=== PATIENT | male | born 1960 | race Caucasian/White ===

== ENCOUNTER 2024-04-24 08:59 | Outpatient (AMB) | payer OTHER, SELFPAY ==
[2024-04-24 09:03] VITALS: BP 122/68; PULSE 72; BMI 24.7
--- NOTE | 2024-04-24 09:03 | MHC.OFFVIS ---
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 to arterial health Allergies Seasonal Allergies Allergy (Severe, Verified 04/24/24 09:18) sneezing Medication List - Last Reconciled 04/24/24 by Elier Jones MD levothyroxine (Levoxyl) 100 mcg PO DAILY omeprazole 10 mg PO DAILY rimegepant (Nurtec ODT) 75 mg PO Q OTHER DAY HPI Comments Details: Thank you for referring myocardial cardiology consultation today for cardiac evaluation. He is a 63-year-old male with prior history of Graves disease status post radioactive iodine treatment and currently on replacement therapy with Levoxyl, migraine headaches. Patient says that more recently he has been hearing his carotid pulse when he is in a very silent conditions. However he also says that over the last year or so he has been noticing increasing symptoms of shortness of breath when he is rushing to do something at his work or when he is very stressed out. He was no associated chest pain. He is worried about these symptoms. Family history of coronary artery disease. No recent lipid panel is noted. Patient has no history of hypertension or diabetes. Otherwise functional remained stable. Recently had what appears to be cholestatic jaundice although this is unclear. [facility] Medical History Eczema Family History Father Heart attack Mother Cancer Social History Alcohol intake: never Patient Tobacco Use Status: Never used Tobacco Review of Systems Const Denies weakness ENT Denies dizziness Card Denies chest pain, Denies chest pain with activity, Denies syncope, Denies rapid heart rate, Denies pedal edema, Denies edema, Denies leg edema, Denies lightheadedness, Denies palpitations, Denies dyspnea, Denies dyspnea on exertion and Denies orthopnea Resp Denies cough, Denies dyspnea and Denies dyspnea on exertion GI Denies hematochezia and Denies change in stool character Musc Denies abnormal gait, Denies muscle cramps, Denies muscle weakness, Denies numbness, Denies radiating pain into limb and Denies tingling Neuro Denies abnormal gait, Denies dizziness, Denies syncope, Denies numbness, Denies tingling and Denies weakness Endo Denies palpitations Physical Exam Vital Signs: Last Vital Signs Pulse 72 04/24/24 09:03 BP 122/68 04/24/24 09:03 BMI result Body Mass Index 24.7 Const General: cooperative, comfortable, no acute distress, alert, awake, Physically active and anxious Nutritional Appearance: thin Orientation/consciousness: patient oriented x3 Limitations: no limitations HEENT Head: Yes normocephalic and Yes atraumatic Neck Neck: Yes trachea midline, Yes supple and Yes no JVD Carotids: no bruits Resp Effort & Inspection: normal respiratory effort Auscultation: clear to auscultation bilaterally Cardio Jugular venous distension: no JVD Palpation: normal PMI Rate: regular rate Rhythm: regular rhythm Heart sounds: S1 normal heart sound present, S2 normal heart sound present, no click, no gallops, no murmurs and no rubs GI Auscultation: normal bowel sounds Skin General skin exam: no rashes or lesions noted Neuro General: patient oriented x3 and no focal motor deficits Extrem General: Yes no clubbing, cyanosis or edema Psych Appearance: grossly normal Affect: Anxious affect present Office Procedures EKG Details: EKG shows normal sinus rhythm with T-wave inversion inferior leads which could represent ischemia with nonspecific inferolateral ST changes 10374-Nhhukyjgegqkijkui, Complete Assessment & Plan Assessment & Plan (1) SOB (shortness of breath) on exertion: Code(s): R06.02 - Shortness of breath Category: Medical Plan: Exertional shortness of breath in this middle-aged man with risk factors of family history. Unknown lipid status. Patient was EKGs baseline abnormal. Myocardial ischemia needs to be ruled out. Will suggest a exercise myocardial perfusion imaging given baseline abnormal EKG. Also suggest an echocardiogram to evaluate for LV systolic and diastolic function as well as to evaluate for pulmonary hypertension given his symptoms of exertional shortness of breath. Further treatment and testing based on the findings. He is having symptoms of unusual carotid sounds in silent involvement will check for carotid artery stenosis. Although likelihood of significant carotid stenosis is low. If these tests are within normal limits we did recommend to pursue coronary calcium score and lipid panel to further assess and risk stratify as needed. Will follow up in the clinic after above-mentioned test. Thank you for allowing me to partake in his care Orders: Orders CA stress test Today R06.02 - Shortness of breath NM cardiolite stress test 2 Weeks R06.02 - Shortness of breath CA echo transthoracic complete Today R06.02 - Shortness of breath US carotid duplex BI Today G45.1 - Carotid artery syndrome (hemispheric), R06.02 - Shortness of breath Coding Level of Care Code New Pt Level 4 (83788) Complex EM visit Add On G2211 Diagnoses SOB (shortness of breath) on exertion R06.02 CPT Codes EKG - CPT: 31379-Ripbdljcivgghmugh, Complete ([id number])
== END 2024-04-24 09:47 | disposition home or self-care (01) ==
PROVIDERS: PCP Internal Medicine; Visit Provider Internal Medicine Cardiovascular Disease
DX: R06.02 Shortness of breath (principal)
CPT/HCPCS: 93010; 99204

== ENCOUNTER → 2024-04-24 08:59 | Outpatient (BNVA) | payer OTHER, SELFPAY | PROVIDERS: PCP Internal Medicine; Visit Provider Internal Medicine Cardiovascular Disease | DX: R06.02 Shortness of breath (principal) | CPT/HCPCS: 93005 ==

== ENCOUNTER → 2024-04-27 13:09 | Outpatient (REF) | payer OTHER, SELFPAY ==
--- NOTE | 2024-04-27 13:13 | CA_ITS ---
Transthoracic Echocardiogram Patient (Last, First, Middle): Duong Watson, Gender: Male Date of : 1960 Age: 63 Procedure Date: 04/27/2024 Procedure Type: Transthoracic Echocardiogram Location: OP Height: 177.8 cm Weight: 71.67 kg BSA: 1.89 m2 Heart Rate: bpm BP: 132 / 82 mmHg Clinical Material Handler: ALEXANDRO Referring MD: Elier Jones MD Symptoms: R06.02 - Shortness of breath Study Quality: Adequate ECG Rhythm: Sinus Conclusions: - The left ventricular systolic function is normal. The visually estimated ejection fraction is between 55-60%. - The mitral valve appears myxomatous. There is trace mitral valve regurgitation. Findings Left Ventricle Normal left ventricular cavity size. There is normal left ventricular wall thickness. The left ventricular systolic function is normal. The visually estimated ejection fraction is between 55-60%. There is no evidence of regional wall motion abnormalities. Diastolic function is normal for age. E/E prime ratio is <8, consistent with normal filling pressures. LV peak GLS -19.4%. Right Ventricle Mildly increased right ventricular cavity size. There is normal right ventricular systolic function. Atria Both atria are normal in size. Aortic Valve There is a normal trileaflet aortic valve. There is no aortic valve stenosis. There is no aortic valve regurgitation. Mitral Valve The mitral valve appears myxomatous. There is trace mitral valve regurgitation. There is no mitral valve stenosis. Pulmonic Valve The pulmonic valve is likely normal. Tricuspid Valve There is trace tricuspid valve regurgitation. There is no evidence of pulmonary hypertension. Great Vessels The asc aorta is normal in size. Venous The inferior vena cava is mildly dilated and collapses greater than 50% with inspiration. Pericardium/Pleural There is no evidence of pericardial effusion. Prior Study Comparison No prior study available for comparison. Measurements 2D Linear Measurements IVSd: 0.82 0.6-0.9/0.6-1.0 cm LVIDd: 4.97 3.9-5.3/4.2-5.9 cm LVIDd Index: 2.63 2.4-3.2/2.2-3.1 cm/m2 LVIDs: 3.28 2.0-3.6 cm LVPWd: 0.85 0.7-1.1 cm LA Diam: 3.60 2.7-3.8/3.0-4.0 cm LAIDs Index: 1.90 1.5-2.3 cm/m2 LV Mass: 176.24 67-162/88-224 g LV Mass Index: 93.25 43-95/49-115 g/m2 LVOT Diam: 2.40 3.0+(-)1.3 cm 2D Systolic Function EF 4C: 65.90 >55% EF 2C: 55.60 >55% EF BiP: 61.20 >55% Mitral Valve MV Pk E: 0.66 MV PK A: 0.45 MV Decel Time: 297.00 E/A: 1.50 E'Lateral: 11.20 E'Medial: 8.27 E/E' Med: 8.00 E/E' Lat: 5.90 PHT: 87.00 MVA PHT: 2.53 Decel Portage: 2.22 Aortic Valve AoV Pk Yong: 1.31 AoV Mn Yong: 0.99 AoV VTI: 0.30 AoV Pk Grad: 7.00 Aov Mn Grad: 4.00 CHRISTIANO Cont.VTI: 3.60 LVOT LVOT Pk Yong: 1.07 LVOT Mn Yong: 0.68 LVOT VTI: 0.24 LVOT Pk Grad: 5.00 LVOT Mn Grad: 2.00 LVOT Diam: 2.40 LVOT Area: 4.52 Diastolic Function MV Pk E: 0.66 MV Pk A: 0.45 E/A: 1.50 E'Medial: 8.27 E/E' Med: 8.00 E' Laterial: 11.20 E/E' Lat: 5.90 Right Ventricle TAPSE (mm): 32.60 TVS' Yong: 14.30 Tricuspid Valve TR Pk Yong: 2.05 TR Pk Grad: 17.00 RA Press: 8.00 RVSP: 25.00 Great Vessels Aorta Sinus of Valsalva: 4.42 2.0-3.[address] Ridge: 3.18 1.7-3.4 cm Ao Asc: 3.50 2.1-3.4 cm Updated in Other Vendor System with Status of Final Yusuf Whipple MD electronically signed on 04/29/2024 12:49:52 PM with status of Final
--- OUTSIDE RECORDS SUMMARY | 2024-04-27 14:35 | XMS_ITS | Continuity of Care Document ---
Author Organization [facility] [address] [place] [address] Phone [phone] Care Team Providers Care Roll Winder Name Role Phone Lauren Sandoval MD Care Team Information Receive r [phone] Alex Chaparro M.D. Care Team Information Link Trainer Teacher [phone] Problems Active Problems Provider Date Hyperlipidemia ROD Townsend Onset: 2023 Polyp of colon ROD Townsend Onset: 2023 Erectile dysfunction ROD Townsend Onset: 0 08/03/2023 Insomnia ROD Townsend Onset: 2023 Gastroesophageal reflux disease ROD Townsend Onset: 08/03/2023 Anemia ROD Townsend Onset: 2023 Social History Type Date Description Comments Sex Unknown Tobacco Use Start: Unknown Never Smoked Cigarettes ETOH Use Never used alcohol Allergies and adverse reactions Active Allergies Criticality Reaction Severity Comments Date Lactose Intolerance Unable to assess criticality 08/03/2023 Palm Kernel Oil Unable to assess criticality 08/03/2023 Inactive Allergies NKDA Unable to assess criticality 08/03/2023 Medications Active Medications SIG Qnty Indications Order ing Provider Date [id number] Tablets Take 1 tab by mouth every day 30tabs Antonio Hendrix M.D. 08/10/2023 [id number] Tablets Dispers Please See Attached For Detailed Directions Duong Pearson M.D. Tyrvaya0.03mg/Act Solution Instill one spray into both nostrils twice daily as Directed. Harry De La Vega MD Restasis0.05% Emulsion Apply 1 Drop In Both Affected Eyes Twice A Day Harry De La Vega MD [id number] Capsules DR Take 1 Capsule By Mouth Every Day Before A Meal Alex Chaparro M.D. Vital Signs Date Vital Result Comment 08/03/2023 1:54pm BP Systolic 118 mmHg BP Diastolic 70 mmHg Heart Rate 90 /min Height 70 inches 5'10 Weight 150.00 lb BMI (Body Mass Index) 21.5 kg/m2 Results Test Acquired Date Facility Test Result H/L Range Note CBC With Differential/Pl atelet 08/03/2023 [facility] WBC 4.8 x10E3/uL 3.4-10.8 RBC 3.83 x10E6/uL Low 4.14-5.80 Hemoglobin 12.2 g/dL Low 13.0-17.7 Hematocrit 34.9 % Low 37.5-51.0 MCV 91 fL 79-97 MCH 31.9 pg 26.6-33.0 MCHC 35.0 g/dL 31.5-35.7 RDW 12.5 % 11.6-15.4 Platelets 216 x10E3/uL 150-450 Neutrophils 64 % Not Estab. Lymphs 28 % Not Estab. Monocytes 7 % Not Estab. Eos 1 % Not Estab. Basos 0 % Not Estab. Immature Cells TNP Neutrophils (Absolute) 3.1 x10E3/uL 1.4-7.0 Lymphs (Absolute) 1.3 x10E3/uL 0.7-3.1 Monocytes(Absolute) 0.3 x10E3/uL 0.1-0.9 Eos (Absolute) 0.1 x10E3/uL 0.0-0.4 Baso (Absolute) 0.0 x10E3/uL 0.0-0.2 Immature Granulocytes 0 % Not Estab. Immature Grans (Abs) 0.0 x10E3/uL 0.0-0.1 NRBC TNP Hematology Comments: TNP Comp. Metabolic Panel (14) 08/03/2023 [facility] Glucose 106 mg/dL High 70-99 BUN 21 mg/dL 8-27 Creatinine 0.55 mg/dL Low 0.76-1.27 eGFR 113 mL/min/1.7 3 >59 BUN/Creatinine Ratio 38 High 10- 24 Sodium 140 mmol/L 134-144 Potassium 4.2 mmol/L 3.5-5.2 Chloride 105 mmol/L 96-106 Carbon Dioxide, Total 20 mmol/L 20-29 Calcium 9.3 mg/dL 8.6-10.2 Protein, Total 6.4 g/dL 6.0-8.5 Albumin 4.2 g/dL 3.8-4.9 Globulin, Total 2.2 g/dL 1.5-4.5 A/G Ratio 1.9 1.2-2.2 Bilirubin, Total 0.2 mg/dL 0.0-1 .2 Alkaline Phosphatase 86 IU/L 44- 121 Ast (Sgot) 22 IU/L 0-40 Alt (SGPT) 26 IU/L 0-44 TSH Rfx on Abnormal to Free T4 08/03/2023 [facility] TSH RFX On Abnormal To Free T4 <0.005 uIU/mL Low 0.450-4.5 00 T4,Free (Direct) 2.65 ng/dL High 0.82 -1.77 Laboratory test finding 08/03/2023 [facility] Thyrotropin Receptor Ab, Serum 4.56 IU/L High 0.00-1.75 T4 Free & T3 Free 08/03/2023 [facility] Thyroxine (T-4), Serum 13.4 g /dL High 1 Free T-3 8.0 pg/mL High 2 Triiodothyronin e (T-3), Serum 201 ng/dL High 3 Free Thyroxine 2.64 ng/dL High 4 1 Reference Range: Adults: 4.2 - 13.0 2 Reference Range: >=20y: 2.0 - 4.4 3 Reference Range: Adults: 55 - 170 4 Reference Range: >=20y: 0.82 - 1.77 Medical Devices Description No Information Available Encounters Type Date Location Provider Dx Diagnosis Office Visit 08/03/2023 1:30p Main Office ROD Townsend E05.90 Thyrotoxicosi s, unsp without thyrotoxic crisis or storm Assessments Date Code Description Provider 08/03/2023 E05.90 Thyrotoxicosis, unspecified without thyrotoxic crisis or storm ROD Townsend Plan of Treatment 08/03/2023 - ROD Townsend* E05.90 Thyrotoxicosis, unspecified without thyrotoxic crisis or storm* New Labs:* Comp. Metabolic Panel (14), Ordered: 08/03/23 * CBC With Differential/Platelet, Ordered: 08/03/23 * TSH RFX On Abnormal To Free T4, Ordered: 08/03/23 * T4 Free & T3 Free, Ordered: 08/03/23 * Thyrotropin Receptor AB, Serum, Ordered: 08/03/23 Functional Status Description No Information Available Mental Status Description No Information Available Referrals Description No Information Available
== END ==
LOC: HO.CARD 13:09
PROVIDERS: Visit Provider Internal Medicine Cardiovascular Disease
DX: R06.02 Shortness of breath (principal)
CPT/HCPCS: 93306; 93356

== ENCOUNTER → 2024-04-27 13:13 | Outpatient (BNV) | payer OTHER, SELFPAY | PROVIDERS: Visit Provider Internal Medicine | DX: I34.1 Nonrheumatic mitral (valve) prolapse (principal); I34.0 Nonrheumatic mitral (valve) insufficiency | CPT/HCPCS: 93306; 93356 ==

== ENCOUNTER 2024-05-02 13:07 | Outpatient (REF) | payer OTHER, SELFPAY ==
--- NOTE | ~2024-05-02 | US_ITS ---
EXAMINATION: US EXTRACRANIAL CAROTID DUPLEX, BILATERAL CLINICAL INFORMATION: Shortness of breath COMPARISON: None available. TECHNIQUE: Real-time ultrasound and Doppler techniques (integrating B-mode 2-D vascular images, Doppler spectral analysis and color-flow Doppler imaging) were utilized to interrogate the extracranial carotid arteries, the vertebral arteries and proximal subclavian arteries bilaterally. The degree of stenosis is determined by criteria similar to NASCET. FINDINGS: Right Side: 1. There is hard atherosclerotic plaque seen in the bifurcation/proximal ICA region. 2. The common carotid artery PSV proximally is 100 cm/s and distally 60 cm/s. 3. The proximal internal carotid artery velocities are 60 cm/s systolic and 20 cm/s diastolic. 4. The proximal external carotid artery PSV is 90 cm/s. 5. The vertebral artery shows antegrade flow. 6. The subclavian artery waveforms are normal. Left Side: 1. There is hard atherosclerotic plaque seen in the bifurcation/proximal ICA region. 2. The common carotid artery PSV proximally is 101 cm/s and distally 59 cm/s. 3. The proximal internal carotid artery velocities are 51 cm/s systolic and 20 cm/s diastolic. 4. The proximal external carotid artery PSV is 72 cm/s. 5. The vertebral artery shows antegrade flow. 6. The subclavian artery waveforms are normal. US/US carotid duplex BI IMPRESSION: 1. RIGHT: No hemodynamically significant stenosis. 0-49% 2. LEFT: No hemodynamically significant stenosis. 0-49% 3. No previous carotid ultrasound available at this institution. Electronically signed by: Ranjan Burris MD 05/03/2024 09:41 AM EST
--- OUTSIDE RECORDS SUMMARY | 2024-05-02 15:20 | XMS_ITS | Continuity of Care Document ---
Author Organization [facility] [address] [place] [address] Phone [phone] Care Team Providers Care Triage Licensed Practical Nurse Name Role Phone Lauren Sandoval MD Care Team Information Receive r [phone] Alex Chaparro M.D. Care Team Information Shuttler Car [phone] Problems Active Problems Provider Date Hyperlipidemia ROD [...] SIG Qnty Indications Order ing Provider Date Dhlrahlszyx87ie Tablets Take 1 tab by mouth every day 30tabs Antonio Hendrix M.D. 08/10/2023 [id number] Tablets Dispers Please See Attached For Detailed Directions Duong Pearson M.D. Tyrvaya0.03mg/Act Solution Instill one spray into both nostrils twice daily as Directed. Harry De La Vega MD Restasis0.05% Emulsion Apply 1 Drop In Both Affected Eyes Twice A Day Harry De La Vega MD [id number] Capsules DR Take 1 Capsule By Mouth [...]
== END 2024-05-02 13:08 | disposition home or self-care (01) ==
LOC: HO.US 13:07
PROVIDERS: PCP Internal Medicine; Visit Provider Internal Medicine Cardiovascular Disease
DX: R06.02 Shortness of breath (principal); G45.1 Carotid artery syndrome (hemispheric)
CPT/HCPCS: 93880

== ENCOUNTER → 2024-05-02 13:09 | Outpatient (BNV) | payer OTHER, SELFPAY | PROVIDERS: PCP Internal Medicine; Visit Provider Radiology Diagnostic Radiology | DX: I70.90 Unspecified atherosclerosis (principal) | CPT/HCPCS: 93880 ==

== ENCOUNTER 2024-05-23 09:17 | Outpatient (AMB) | payer OTHER, SELFPAY ==
[2024-05-23 09:21] VITALS: BP 124/72; PULSE 76; BMI 24.7
--- NOTE | 2024-05-23 09:21 | MHC.OFFVIS ---
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 He did undergo an echocardiogram and carotid study. A nuclear stress test has been ordered but not completed as of yet. Today he reports that he still has some shortness of breath with exertion and if he is moving quickly. He is concerned about this as it is newer for him. He has not had any chest discomfort at rest or with activity. He does have some discomfort in his left arm that is random. In the mornings he has swelling in his left hand and. He does describe having cervical disc issues and nerve compression which can contribute to his left arm symptoms. No heart palpitations, lightheadedness, presyncope, syncope. At times he can hear his heart beating in his ear if the room is very quiet. 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 [facility] Medical History Eczema Family History Father Heart attack Mother Cancer Social History Alcohol intake: never Patient Tobacco Use Status: Never used Tobacco Review of Systems Const Details: chronic issues with headaches - which have been worse recently All systems reviewed & are unremarkable except as noted in HPI and below ENT Details: can hear pulsation in ears if room very quiet Denies dizziness Card Details: left arm discomfort and swelling in left hand at times Denies chest pain, Denies chest pain at rest, Denies chest pain with activity, Denies rapid heart rate, Denies pedal edema, Denies edema, Denies leg edema, Denies lightheadedness, Denies palpitations, Denies dyspnea, Reports dyspnea on exertion (at times causing concern) and Denies orthopnea Resp Denies cough, Denies dyspnea and Reports dyspnea on exertion (at times causing concern) GI Denies hematochezia and Denies change in stool character Musc Denies abnormal gait, Denies limited range of motion, Denies muscle cramps, Denies muscle weakness, Denies numbness, Denies radiating pain into limb, Denies stiffness and Denies tingling Neuro Denies abnormal gait, Denies dizziness, Denies numbness and Denies tingling Endo Denies palpitations Physical Exam Vital Signs: Last Vital Signs Pulse 76 05/23/24 09:21 BP 124/72 05/23/24 09:21 BMI result Body Mass Index 24.7 Const General: cooperative, healthy appearing, comfortable and no acute distress Orientation/consciousness: patient oriented x3 Neck Neck: Yes normal visual inspection and Yes no JVD Resp Effort & Inspection: normal respiratory effort Auscultation: clear to auscultation bilaterally, no crackles, no rales, no rhonchi and no wheezes Cardio Jugular venous distension: no JVD Rate: regular rate Rhythm: regular rhythm Heart sounds: S1 normal heart sound present, S2 normal heart sound present, no murmurs and no rubs Neuro General: patient oriented x3 Extrem General: Yes normal to inspection, No no pedal edema and No calf tenderness Psych Appearance: grossly normal Mental Status: mental status grossly normal Speech and movement: Normal speech and movement present Assessment & Plan Assessment & Plan (1) SOB (shortness of breath) on exertion: Code(s): R06.02 - Shortness of breath Category: Medical Plan: Newer symptom of shortness of breath with exertional activities. Patient has no cardiac history. He has a low cardiac risk profile. EKG done last visit showed sinus rhythm with ST and T-wave abnormality in leads 3, AVF and V6. He had an echocardiogram on 04/24/2024 showing EF 55-60%, no regional wall motion abnormalities, myxomatous mitral valve. For a pulsation in his ears he did undergo a carotid study on 05/02/2024 which showed right and left ICA with no hemodynamically significant stenosis, 0-49%. Test results reviewed with him. A nuclear stress test had been ordered however not completed as of yet. Is currently scheduled for July. I will try to see if we can get this done sooner. Signs and symptoms of true angina reviewed with him. Cardiology follow-up in a few months, sooner if needed. Emergency care if ever warranted for symptoms. (2) Left arm pain: Code(s): M79.602 - Pain in left arm Category: Medical Plan: Report of left arm discomfort, intermittent. Also some swelling in his left hand and tightness with his grasped. He does have cervical spine issues and has had surgery in the past. Symptom is most likely related to this. He does have a nuclear stress test pending which will help to rule out cardiac cause. Plan Time spent on chart review, documentation, interview and assessment Coding Level of Care Code Est Pt Level 3 (75839) Complex EM visit Add On G2211 Diagnoses SOB (shortness of breath) on exertion R06.02 Left arm pain M79.602 Time Spent (min) 24
== END 2024-05-23 09:52 | disposition home or self-care (01) ==
PROVIDERS: PCP Internal Medicine; Visit Provider Nurse Practitioner Family
DX: R06.02 Shortness of breath (principal); M79.602 Pain in left arm
CPT/HCPCS: 99213

== ENCOUNTER → 2024-08-10 08:17 | Outpatient (REF) | payer OTHER, SELFPAY ==
--- NOTE | 2024-08-10 08:20 | CA_ITS ---
Acquisition Time: 2024-08-10 08:25:20 Total Exercise Time: 00:07:35 Test Indications: ABN EKG, SOB Medications: SEE H&P Protocol: LURDES Max HR: 142 BPM 89% of Pred: 159 BPM Max BP: 142/70 mmHG Max Work Load: 9.4 METS Exercise stress test with exercise 7 mins 35 secs of Lurdes Protocol, achieving 88% MPHR, with reports of 5/10 left sided chest pressure and moderate SOB, with isolated PACs, with normotensive response to exercise. With sagging ST not meeting criteria for ischemia, nonspecific ST- T waves at baseline. In recovery, chest pain slowly improving and brathing returned to baseline. Nuclear images pending. Test reviewed [facility] Dr. Whipple. Referred By: Elier Jones Electronically Signed By: Lakhwinder Ledesma
--- OUTSIDE RECORDS SUMMARY | 2024-08-10 08:32 | XMS_ITS | Continuity of Care Document ---
Author Organization [facility] [address] [place] [address] Phone [phone] Care Team Providers Care Continuity Person Name Role Phone Lauren Sandoval MD Care Team Information Receive r [phone] Alex Chaparro M.D. Care Team Information Hot Car Charger [phone] Problems Active Problems Provider Date Hyperlipidemia ROD [...] SIG Qnty Indications Order ing Provider Date [id number] Tablets Take 1 tab by mouth every day 30tabs Antonio Hendrix M.D. 08/10/2023 Aarniz94ie Tablets Dispers Please See Attached For Detailed Directions Duong Pearson M.D. Tyrvaya0.03mg/Act Solution Instill one spray into both nostrils twice daily as Directed. Harry De La Vega MD Restasis0.05% Emulsion Apply 1 Drop In Both Affected Eyes Twice A Day Harry De La Vega MD [id number] Capsules DR Take 1 Capsule By Mouth [...] T4,Free (Direct) 2.65 ng/dL High 0.82 -1.77 Thyrotropin Receptor Ab, Serum 08/03/2023 [facility] Thyrotropin Receptor Ab, Serum 4.56 [...]
== END ==
LOC: HO.CARD 08:17
PROVIDERS: PCP Internal Medicine; Visit Provider Internal Medicine Cardiovascular Disease
DX: R06.02 Shortness of breath (principal)
CPT/HCPCS: 78452; 93017; A9500

== ENCOUNTER → 2024-08-10 08:20 | Outpatient (BNV) | payer OTHER, SELFPAY | PROVIDERS: PCP Internal Medicine | DX: R06.02 Shortness of breath (principal); I49.1 Atrial premature depolarization | CPT/HCPCS: 78452; 93016; 93018 ==

== ENCOUNTER 2024-08-24 08:30 | Outpatient (AMB) | payer OTHER, SELFPAY ==
[2024-08-24 08:32] VITALS: BP 124/82; PULSE 77; BMI 25.3
--- NOTE | 2024-08-24 08:32 | A.OFFVIS_ITS ---
Vital Signs 08/24/24 08:32 Height 5 ft 10 in Weight 176 lb 5.917 oz BMI 25.3 BP 124/82 Blood Pressure Location Lt brachial Position Sitting Pulse 77 Pulse Source Pulse Oximeter Intake Visit Reasons: follow-up after stress test University Librarian Required: No Allergies Seasonal Allergies Allergy (Severe, Verified 08/24/24 08:34) sneezing Medication List - Last Reconciled 08/24/24 by Cammy Echols NP-C levothyroxine (Levoxyl) 100 mcg PO DAILY omeprazole 40 mg PO DAILY rimegepant (Nurtec ODT) 75 mg PO Q OTHER DAY HPI HPI follow-up after stress test: Details: Duong is a 63-year-old male with no cardiac history who is reporting exertional shortness of breath and chest discomfort. He recently underwent a nuclear stress test and now presents for follow-up. Today he reports that he still has some shortness of breath with exertion and if he is moving quickly. He states this symptom is newer for him since last summer. He has notice chest discomfort and some lightheadedness as well with exertion. No heart palpitations, presyncope, syncope, falls. No shortness of breath at rest, PND, orthopnea or edema. In the mornings he has swelling in his left hand and discomfort in his left arm which causes him some concern. He does describe having cervical disc issues and nerve compression which can contribute to his left arm symptoms. 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 [facility] Medical History Eczema Family History Father Heart attack Mother Cancer Social History Alcohol intake: never Patient Tobacco Use Status: Never used Tobacco Review of Systems Const All systems reviewed & are unremarkable except as noted in HPI and below ENT Denies dizziness Card Details: chest heaviness, lightheaded at times Denies chest pain, Denies chest pain at rest, Denies chest pain with activity, Denies rapid heart rate, Denies pedal edema, Denies edema, Denies leg edema, Reports lightheadedness, Denies palpitations, Reports dyspnea, Reports dyspnea on exertion and Denies orthopnea Resp Denies cough, Reports dyspnea and Reports dyspnea on exertion GI Denies hematochezia and Denies change in stool character Musc Denies abnormal gait, Reports limited range of motion, Reports muscle cramps, Denies muscle weakness, Denies numbness, Denies radiating pain into limb, Denies stiffness and Denies tingling Neuro Denies abnormal gait, Denies dizziness, Denies numbness and Denies tingling Endo Denies palpitations Physical Exam Vital Signs: Last Vital Signs Pulse 77 08/24/24 08:32 BP 124/82 08/24/24 08:32 BMI result Body Mass Index 25.3 Const General: cooperative, healthy appearing, comfortable and no acute distress Orientation/consciousness: patient oriented x3 Neck Neck: Yes normal visual inspection Resp Effort & Inspection: normal respiratory effort Auscultation: clear to auscultation bilaterally, no crackles, no rales, no rhonchi and no wheezes Cardio Rate: regular rate Rhythm: regular rhythm Heart sounds: S1 normal heart sound present, S2 normal heart sound present, no murmurs and no rubs Neuro General: patient oriented x3 Extrem General: Yes normal to inspection, No no pedal edema and No calf tenderness Psych Appearance: grossly normal Mental Status: mental status grossly normal Speech and movement: Normal speech and movement present Assessment & Plan Assessment & Plan (1) SOB (shortness of breath) on exertion: Code(s): R06.02 - Shortness of breath Category: Medical Plan: In the last year, new shortness of breath with exertional activities also with periodic chest discomfort and lightheadedness with exertion. Patient has no cardiac historyand low cardiac risk profile. Prior EKG shows sinus rhythm with ST and T-wave abnormality in leads 3, AVF and V6. Echocardiogram on 04/24/2024 showing EF 55-60%, no regional wall motion abnormalities, myxomatous mitral valve. Nuclear stress test 08/10/2024 showed exercise 7.5 minutes with report of chest discomfort and moderate shortness of breath, nonspecific EKG changes and normal myocardial perfusion imaging. Due to persistent exertional symptoms will order a CTA of the coronary arteries for further evaluation. Will also order a pulmonary function test to evaluate for any pulmonary cause. Plan to call him with results. Cardiology follow-up 6 months unless tests are abnormal then sooner follow-up will be needed. Signs and symptoms of true angina reviewed with him. Emergency care if ever warranted for symptoms. (2) Left arm pain: Code(s): M79.602 - Pain in left arm Category: Medical Plan: Report of left arm discomfort, intermittent. Also some swelling in his left hand and tightness with his grasped. He does have cervical spine issues and has had surgery in the past. Symptom is most likely related to this. He does have a nuclear stress test pending which will help to rule out cardiac cause. (3) Abnormal stress ECG with treadmill: Code(s): R94.39 - Abnormal result of other cardiovascular function study Category: Medical Plan: As above (4) Chest discomfort: Code(s): R07.89 - Other chest pain Category: Medical Plan: As above Plan Time spent on chart review, documentation, interview and assessment Patient was informed and verbally consented to the use of an ambient scribe for clinic note documentation during this visit. I discussed with the patient that while the nuclear stress test showed healthy myocardial blood flow, the symptoms warranted further investigation. We agreed that a coronary artery CT scan would help clarify the extent of vessel narrowing and potentially explain the dyspnea and chest pain. I stressed that the CT will indicate if coronary narrowing could be contributing to these symptoms or if another cause, such as pulmonary origin, should be considered. Hence, a pulmonary function test was also recommended to cover possible respiratory causes. The patient was informed about the scheduling timeframe for these tests and the rationale for addressing the cardiac etiology first. We also covered lifestyle adjustments, emphasizing the need to limit activities that trigger symptoms until clarity is reached through diagnostic findings. Potential outcomes and the value of discerning cardiac versus pulmonary etiology were reviewed, and the patient expressed understanding and agreement. Orders: Orders CT Cardiac Coronary Angio Today R06.02 - Shortness of breath, R07.89 - Other chest pain, R94.39 - Abnormal result of other cardiovascular function study Basic Metabolic Panel Today R06.02 - Shortness of breath, R07.89 - Other chest pain, R94.39 - Abnormal result of other cardiovascular function study PFT pulmonary function test Today R06.02 - Shortness of breath, R94.39 - Abnormal result of other cardiovascular function study TSH reflex Free T4 Today R06.02 - Shortness of breath Patient Instructions: - Await scheduling calls for your CT scan of the coronary arteries. - Await scheduling of a pulmonary function test, to evaluate lung function. - Avoid over-exertion and manage any known stressors that worsen symptoms. - Monitor for worsening symptoms such as prolonged chest pain or severe dizziness. - Ensure adherence to dietary adjustments previously recommended. - Notify us immediately if symptoms notably worsen. Coding Level of Care Code Est Pt Level 4 (75190) Complex EM visit Add On G2211 Diagnoses SOB (shortness of breath) on exertion R06.02 Left arm pain M79.602 Abnormal stress ECG with treadmill R94.39 Chest discomfort R07.89 Time Spent (min) 36
--- OUTSIDE RECORDS SUMMARY | 2024-08-24 08:43 | XMS_ITS | Continuity of Care Document ---
Author Organization [facility] [address] [place] [address] Phone [phone] Care Team Providers Care Delimber Operator Name Role Phone Lauren Sandoval MD Care Team Information Receive r [phone] Alex Chaparro M.D. Care Team Information Sheet Rock Layer [phone] Problems Active Problems Provider Date Hyperlipidemia ROD [...] SIG Qnty Indications Order ing Provider Date [id number] Tablets Take 1 tab by mouth every day 30tabs Antonio Hendrix M.D. 08/10/2023 [id number] Tablets Dispers Please See Attached For Detailed Directions Duong Pearson M.D. Tyrvaya0.03mg/Act Solution Instill one spray into both nostrils twice daily as Directed. Harry De La Vega MD Restasis0.05% Emulsion Apply 1 Drop In Both Affected Eyes Twice A Day Harry De La Vega MD [id number] Capsules DR Take 1 Capsule By Mouth [...]
== END 2024-08-24 09:11 | disposition home or self-care (01) ==
LOC: HO.HCS 08:30
PROVIDERS: PCP Internal Medicine; Visit Provider Nurse Practitioner Family
DX: R06.02 Shortness of breath (principal); M79.602 Pain in left arm; R94.39 Abnormal result of other cardiovascular function study; R07.89 Other chest pain
CPT/HCPCS: 99214

== ENCOUNTER 2024-10-03 14:49 | Outpatient (REF) | payer OTHER, SELFPAY ==
--- NOTE | 2024-10-03 14:51 | PFT_ITS ---
Indication: Dyspnea Spirometry FEV1 to FVC 78%; FEV1 3.31 L; FVC 4.26 L. No significant response to bronchodilators noted. The patient did have significant coughing during the exhalation phase. Lung Volumes Total lung capacity 102% predicted; residual volume 133% predicted Diffusion Capacity DLCO 72% predicted Comparisons None Interpretation No definitive obstructive nor restrictive ventilatory defects identified. No significant response to bronchodilators noted. Lung volumes significant for significant air trapping which could be secondary to small airways disease. Diffusing capacity is mildly decreased. If asthma is in the differential methacholine challenge may be helpful for assessing for hyperreactive airways. Clinical correlation warranted. MTDD
[2024-10-03 15:36] VITALS: PULSE 75; O2SAT 100
--- OUTSIDE RECORDS SUMMARY | 2024-10-03 17:10 | XMS_ITS | Continuity of Care Document ---
Author Organization [facility] [address] [place] [address] Phone [phone] Care Team Providers Care Director Meetings Name Role Phone Lauren Sandoval MD Care Team Information Receive r [phone] Alex Chaparro M.D. Care Team Information Assisted Living Executive Director [phone] Problems Active Problems Provider Date Hyperlipidemia ROD [place] Onset: 2023 Polyp of colon ROD [place]: 2023 Erectile dysfunction ROD [place] Onset: 0 08/03/2023 Insomnia ROD [place]set: 2023 Gastroesophageal reflux disease ROD [place] Onset: 08/03/2023 Anemia ROD [place] Onset: 2023 Social History Type Date Description Comments Sex Male Sex Unknown Tobacco Use Start: Unknown Never Smoked Cigarettes ETOH Use Never used alcohol Allergies and adverse reactions Active Allergies Criticality Reaction Severity Comments Date Lactose Intolerance Unable to assess criticality 08/03/2023 Palm Kernel Oil Unable to assess criticality 08/03/2023 Inactive Allergies NKDA Unable to assess criticality 08/03/2023 Medications Active Medications SIG Qnty Indications Order ing Provider Date [id number] Tablets Take 1 tab by mouth every day 30tabs Antonio Hendrix M.D. 08/10/2023 [id number] Tablets Dispers Please See Attached For Detailed Directions Duong Pearson M.D. Tyrvaya0.03mg/Act Solution Instill one spray into both nostrils twice daily as Directed. Harry De La Vega MD Restasis0.05% Emulsion Apply 1 Drop In Both Affected Eyes Twice A Day Harry De La Vega MD [id number] Capsules DR Take 1 Capsule By Mouth [...]
== END 2024-10-03 14:50 | disposition home or self-care (01) ==
LOC: HO.RESP 14:49
PROVIDERS: PCP Internal Medicine; Visit Provider Nurse Practitioner Family
DX: R06.02 Shortness of breath (principal); R94.39 Abnormal result of other cardiovascular function study
CPT/HCPCS: 94010; 94640; 94727; 94729

== ENCOUNTER → 2024-10-03 14:51 | Outpatient (BNV) | payer OTHER, SELFPAY | PROVIDERS: PCP Internal Medicine; Visit Provider Hospitalist | DX: R06.00 Dyspnea, unspecified (principal) | CPT/HCPCS: 94060; 94727; 94729 ==

== ENCOUNTER 2024-10-09 08:27 | Outpatient (AMB) | payer OTHER, SELFPAY ==
--- NOTE | 2024-10-09 08:29 | MHC.OFFVIS ---
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 He recently underwent a PFT and CTA of coronary arteries and now presents for follow-up. Today he reports that he still has some shortness of breath and now coughing with exertion. He went for a walk today and had to stop due to shortness of breath and cough. When he coughs a lot he will get some lightheadedness. His chest will feel tight, no other pains. No heart palpitations, presyncope, syncope, falls. No shortness of breath at rest, PND, orthopnea or edema. [facility] Medical History Eczema Family History Father Heart attack Mother Cancer Social History Alcohol intake: never Patient Tobacco Use Status: Never used Tobacco Review of Systems Const All systems reviewed & are unremarkable except as noted in HPI and below ENT Denies dizziness Card Reports chest pain, Denies chest pain at rest, Denies chest pain with activity, Denies rapid heart rate, Denies pedal edema, Denies edema, Denies leg edema, Denies lightheadedness, Denies palpitations, Reports dyspnea, Reports dyspnea on exertion and Denies orthopnea Resp Reports cough, Reports dyspnea and Reports dyspnea on exertion GI Denies hematochezia and Denies change in stool character Musc Denies abnormal gait, Denies limited range of motion, Denies muscle cramps, Denies muscle weakness, Denies numbness, Denies radiating pain into limb, Denies stiffness and Denies tingling Neuro Denies abnormal gait, Denies dizziness, Denies numbness and Denies tingling Endo Denies palpitations Physical Exam Vital Signs: BMI result Body Mass Index 24.9 Const General: cooperative, healthy appearing, comfortable and no acute distress Orientation/consciousness: patient oriented x3 Neck Neck: Yes normal visual inspection Resp Effort & Inspection: normal respiratory effort Auscultation: clear to auscultation bilaterally, no crackles, no rales, no rhonchi and no wheezes Cardio Rate: regular rate Rhythm: regular rhythm Heart sounds: S1 normal heart sound present, S2 normal heart sound present, no murmurs and no rubs Neuro General: patient oriented x3 Extrem General: Yes normal to inspection, No no pedal edema and No calf tenderness Psych Appearance: grossly normal Mental Status: mental status grossly normal Speech and movement: Normal speech and movement present Assessment & Plan Assessment & Plan (1) SOB (shortness of breath) on exertion: Code(s): R06.02 - Shortness of breath Category: Medical Plan: In the last year, new shortness of breath and coughing with exertional activities also with periodic chest discomfort. Low cardiac risk profile with no significant risk factors. Prior EKG shows sinus rhythm with ST and T-wave abnormality in leads 3, AVF and V6. Echocardiogram on 04/24/2024 showing EF 55-60%, no regional wall motion abnormalities, myxomatous mitral valve. Nuclear stress test 08/10/2024 showed exercise 7.5 minutes with report of chest discomfort and moderate shortness of breath, nonspecific EKG changes and normal myocardial perfusion imaging. Due to persistent exertional symptoms he underwent a CTA of the coronary arteries which showed no obstructive coronary artery disease. He did have mild plaque in the proximal LAD less than 25% stenosis. He underwent a pulmonary function test which did show findings of air trapping and small airway disease. Reviewed test results with him and gave him a copy of these reports. He may have exertional asthma. He will further discuss with his PCP. Will fax reports to PCP office. Finding of mild nonobstructive coronary artery disease reviewed. Recommend aspirin 81 mg daily and statin use for ideal LDL goal less than 70. Labs followed by PCP. Signs and symptoms of angina discussed. Cardiology follow-up 2 years, sooner if needed. (2) Left arm pain: Code(s): M79.602 - Pain in left arm Category: Medical Plan: Prior reports Report of left arm discomfort, intermittent. Also some swelling in his left hand and tightness with his grasped. He does have cervical spine issues and has had surgery in the past. Symptom is most likely related to cervical spine issues. There is no evidence this is cardiac in nature. (3) Abnormal stress ECG with treadmill: Code(s): R94.39 - Abnormal result of other cardiovascular function study Category: Medical Plan: As above. Moderate shortness of breath. (4) Chest discomfort: Code(s): R07.89 - Other chest pain Category: Medical Plan: As above Plan I discussed with the patient that the CTA showed no significant coronary artery disease, with only minor plaque in the LAD. We talked about managing cholesterol levels through diet and possibly using a daily baby aspirin. For respiratory symptoms, I suggested a rescue inhaler and advised follow-up with the primary care physician. A curator of education referral may be needed if symptoms persist. I recommended no immediate cardiology follow-up unless new symptoms develop. Patient Instructions: - Reduce pork intake to manage cholesterol levels. - Take a daily baby aspirin if advised by your doctor. - Follow up with your primary care doctor for lung management. - Consider seeing a curator of education if breathing issues continue. - Cardiology follow-up 2 yrs, unless new symptoms appear. Patient was informed and verbally consented to the use of an ambient scribe for clinic note documentation during this visit. Visit time spent on chart review, interview, assessment, orders, documentation. Coding Level of Care Code Est Pt Level 4 (86304) Complex EM visit Add On G2211 Diagnoses SOB (shortness of breath) on exertion R06.02 Left arm pain M79.602 Abnormal stress ECG with treadmill R94.39 Chest discomfort R07.89 Time Spent (min) 28
[2024-10-09 08:30] VITALS: BP 130/82; PULSE 52; BMI 24.9
--- OUTSIDE RECORDS SUMMARY | 2024-10-09 08:38 | XMS_ITS | Continuity of Care Document ---
Author Organization [facility] [address] [place] [address] Phone [phone] Care Team Providers Care Acid Splicer Name Role Phone Lauren Sandoval MD Care Team Information Receive r [phone] Alex Chaparro M.D. Care Team Information Exhibits Coordinator [phone] Problems Active Problems Provider Date Hyperlipidemia ROD [...] SIG Qnty Indications Order ing Provider Date [id number] Tablets Take 1 tab by mouth every day 30tabs Antonio Hendrix M.D. 08/10/2023 [id number] Tablets Dispers Please See Attached For Detailed Directions Duong Pearson M.D. Tyrvaya0.03mg/Act Solution Instill one spray into both nostrils twice daily as Directed. Harry De La Vega MD Restasis0.05% Emulsion Apply 1 Drop In Both Affected Eyes Twice A Day Harry De La Vega MD [id number] Capsules DR Take 1 Capsule By Mouth [...] Free 08/03/2023 [facility] Thyroxine (T-4), Serum 13.4 g/dL High 1 Free T-3 8.0 pg/mL High [...]
== END 2024-10-09 09:01 | disposition home or self-care (01) ==
LOC: HO.HCS 08:27
PROVIDERS: PCP Internal Medicine; Visit Provider Nurse Practitioner Family
DX: R06.02 Shortness of breath (principal); M79.602 Pain in left arm; R94.39 Abnormal result of other cardiovascular function study; R07.89 Other chest pain
CPT/HCPCS: 99214; G2211